=== PATIENT | female | born 1995 | race Caucasian/White ===

== ENCOUNTER 2023-09-03 15:45 | Emergency (ER) | payer MEDICAID ==
[~2023-09-03] VITALS: Ht 152.4 cm; Wt 70.3 kg
[2023-09-03 15:47] VITALS: BP 104/67; PULSE 62; RESP 18; TEMP 97.6; O2SAT 99
[2023-09-03] MEDS: KETOROLAC 30 MG/ML VIAL IM ONE (17:11)
[2023-09-03] MEDS ORDERED: METH-1681 PO (17:21)
[2023-09-03] MEDS ORDERED: LID5T TP (17:21)
[2023-09-03] MEDS ORDERED: NAPR-54 PO (17:21)
== END 2023-09-03 17:27 | disposition home or self-care (01) ==
LOC: MED 15:45
DX: S39.012A Strain of muscle, fascia and tendon of lower back, initial encounter (principal); Z79.899 Other long term (current) drug therapy; X58.XXXA Exposure to other specified factors, initial encounter; Y93.89 Activity, other specified; Y92.89 Other specified places as the place of occurrence of the external cause; Y99.8 Other external cause status
CPT/HCPCS: 81025; 96372; 99283; J1885